=== PATIENT | female | born 1970 | race Caucasian/White ===

== ENCOUNTER 2017-08-06 15:10 | Outpatient (CLI) | payer MEDICAID ==
--- NOTE | 2017-08-06 17:11 | XRAY Report ---
RIGHT SHOULDER: 08/06/2017 No comparison. INDICATION: Right shoulder pain. TECHNIQUE: Two views. FINDINGS: Normal alignment. No evidence of acute fracture. There are mild degenerative changes of the acromioclavicular joint. IMPRESSION: MILD AC JOINT ARTHROSIS. TD: 08/06/2017 17:11 [facility]
== END 2017-08-06 15:11 | disposition home or self-care (01) ==
LOC: DI.S 15:10
PROVIDERS: ATTEND Nurse Practitioner Family
DX: M19.011 Primary osteoarthritis, right shoulder (principal)